=== PATIENT | male | born 1995 | race Hispanic/Latino ===

== ENCOUNTER 2019-11-07 02:26 | Observation (INO) | payer OTHER ==
[~2019-11-07] VITALS: Ht 170.2 cm; Wt 79.3 kg
[2019-11-07] MEDS ORDERED: DOXY-350 PO (02:32)
[2019-11-07] MEDS ORDERED: CHARCOAL ACTIVATED LIQUID 25 GM/120 ML BTL PO ONE (02:45)
[2019-11-07 02:53] LABS: BASO % 0.4 % (0.0-1.0); EOS # 0.2 10^3/uL (0.0-0.5); EOS % 1.9 % (0.0-3.0); HEMATOCRIT 45.8 % (42.0-52.0); HEMOGLOBIN 15.5 g/dl (13.5-17.5); LYMPH % 21.7 % (24.0-44.0); MEAN CORPUSCULAR HEMOGLOBIN 30.2 pg (27.0-33.0); MEAN CORPUSCULAR HGB CONC 33.8 g/dl (32.0-36.5); MEAN CORPUSCULAR VOLUME 89.3 fl (80.0-96.0); MONO # 0.7 10^3/uL (0.0-0.8); MONO % 7.3 % (0.0-5.0); NEUTROPHILS # 6.1 10^3/uL (1.5-8.5); NEUTROPHILS % 67.5 % (36.0-66.0); PLATELET COUNT, AUTOMATED 176 10^3/uL (150-450); RED BLOOD COUNT 5.13 10^6/uL (4.30-6.10); WHITE BLOOD COUNT 9.1 10^3/uL (4.0-10.0)
[2019-11-07 03:20] LABS: AMPHETAMINES LEVEL URINE NEGATIVE (NEGATIVE); BARBITURATES URINE NEGATIVE (NEGATIVE); BENZODIAZEPINES URINE NEGATIVE (NEGATIVE); CANNABINOIDS URINE NEGATIVE (NEGATIVE); COCAINE METABOLITE URINE NEGATIVE (NEGATIVE); METHADONE URINE NEGATIVE (NEGATIVE); OPIATES URINE NEGATIVE (NEGATIVE); PHENCYCLIDINE URINE NEGATIVE (NEGATIVE)
[2019-11-07 03:57] LABS: ACETAMINOPHEN LEVEL < 2.0 UG/ML (10.0-30.0); ALBUMIN 4.2 GM/DL (3.2-5.2); ALT/SGPT 64 U/L (12-78); BILIRUBIN,DIRECT 0.1 MG/DL (0.0-0.2); BILIRUBIN,TOTAL 0.3 MG/DL (0.2-1.0); BLOOD UREA NITROGEN 29 MG/DL (7-18); CALCIUM LEVEL 8.7 MG/DL (8.5-10.1); CARBON DIOXIDE LEVEL 23 MEQ/L (21-32); CHLORIDE LEVEL 106 MEQ/L (98-107); CPK CREATINE PHOSPHOKINASE 7952 U/L (39-308); CREATININE FOR GFR 1.14 MG/DL (0.70-1.30); ETHYL ALCOHOL (ETHANOL) < 0.003 % (0.000-0.010); GLOMERULAR FILTRATION RATE > 60.0 (>60); GLUCOSE, FASTING 98 MG/DL (70-100); POTASSIUM SERUM 4.1 MEQ/L (3.5-5.1); SALICYLATE LEVEL < 1.7 MG/DL (5.0-30.0); SODIUM LEVEL 138 MEQ/L (136-145); TOTAL PROTEIN 7.4 GM/DL (6.4-8.2)
[2019-11-07] MEDS ORDERED: NS 1,000 ML IV ONE ×2 (04:15→11:00)
[2019-11-07 10:51] LABS: ALBUMIN 3.7 GM/DL (3.2-5.2); ALT/SGPT 55 U/L (12-78); BILIRUBIN,DIRECT 0.1 MG/DL (0.0-0.2); BILIRUBIN,TOTAL 0.6 MG/DL (0.2-1.0); BLOOD UREA NITROGEN 20 MG/DL (7-18); CALCIUM LEVEL 8.6 MG/DL (8.5-10.1); CARBON DIOXIDE LEVEL 27 MEQ/L (21-32); CHLORIDE LEVEL 109 MEQ/L (98-107); CPK CREATINE PHOSPHOKINASE 5525 U/L (39-308); CREATININE FOR GFR 1.11 MG/DL (0.70-1.30); GLOMERULAR FILTRATION RATE > 60.0 (>60); GLUCOSE, FASTING 94 MG/DL (70-100); POTASSIUM SERUM 4.6 MEQ/L (3.5-5.1); SODIUM LEVEL 141 MEQ/L (136-145); TOTAL PROTEIN 6.6 GM/DL (6.4-8.2)
--- NOTE | 2019-11-07 13:01 | ECGEPIP ---
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
[2019-11-07] MEDS ORDERED: NS 1,000 ML IV SCH (13:15)
[2019-11-07] MEDS ORDERED: ACETAMINOPHEN TAB 650MG DOSE (2X325MG) PO PRN (14:00)
[2019-11-07] MEDS: NS 1,000 ML IV SCH ×3 (14:30→22:24)
--- NOTE | 2019-11-07 14:46 | HPEPDOC ---
General Date of Admission November 07, 2019 at 02:27 Date of Service: November 07, 2019 Attending Physician: FERNANDO GHOSH MD Chief Complaint The patient is a 24-year-old male admitted with a reason for visit of Rhabdomyolysis. Source: Patient Exam Limitations: No limitations Timing/Duration: 24 hours History of Present Illness 24 yo M with a history of depressive episodes, prior suicide attempt by gun that did not go off, active , who presented after ingesting 21 pills of 100mg doxycycline tabs with the goal of committing suicide. He immediately regretted it and presented to the ED. Of note he reports recent intensive PT training with chemical suits with prolonged periods of no hydration and frequent bursts of intense physical training. He denies any recent specific psychosocial pressures, has a girlfriend and his family is in [place]. In the ED, he was hemodynamically stable, afebrile and saturating well on room air without acute complaints. Workup was notable for CK 7952--5525-->5570, WBC 9.1, hgb 15.5, Cr 1.1, AST 113/ALT 55, with normal electrolytes, NSR on EKG and negative tox screen> While in the ED he was given charcoal on arriva, 2L NS and started on 250cc/hr NS and poison control was contacted without any specific recommendations beyond expectant supportive management. He is now being admitted to medicine for management of rhabdomyolysis a with psychiatry consult. Home Medications Scheduled Doxycycline Monohydrate (Doxycycline) 100 Mg Capsule, 100 MG PO Q12H, (Reported) FILLED 11/04/19 FOR 14 DAYS Allergies Coded Allergies: No Known Allergies (Unverified , 11/07/19) Past Medical History Medical History Depression Suicide attempt Surgical History None Family History Significant Family History: No pertinent family hx Social History * Smoker: Denies Alcohol: Denies Drugs: denies Recent Travel/Sick Contacts: Denies: Recent travel, Recent sick contacts Psychosocial History: Depression, Prior suicide attempt, Suicidal thoughts Active . Reports good psychosocial support with girlfriend and his family that is located in [place]. No smoking, alcohol or illicit drug use. A-FIB/CHADSVASC A-FIB History Current/History of A-Fib/PAF?: No Current PO Anticoag Therapy: No Age/Risk Factor Scoring CHADSVASC: CHADSVASC Response (Comments) Value Age Risk Factor Age < 65 years old 0 Gender Risk Factor Male 0 Hx of CHF No 0 Hx of HTN No 0 Hx of Stroke/TIA/or VTE No 0 Hx of Diabetes No 0 Hx of Vascular Disease No 0 Total 0 Treatment Treatment ordered: NONE Reason Anticoagulant not given: Not indicated/[id number] Review of Systems Constitutional: Denies: Chills, Fever, Night Sweats Eyes: Denies: Pain, Vision change ENT: Denies: Head Aches, Ear Pain, Dysphagia Skin: Denies: Rash, Lesions, Breakdown Pulmonary: Denies: Dyspnea, Cough Cardiovascular: Denies: Chest Pain, Palpitations, Orthopnea, Paroxysmal Noc. Dyspnea, Lt Headedness Gastrointestinal: Denies: Nausea, Vomiting, Abdominal Pain, Diarrhea Genitourinary: Denies: Dysuria, Frequency, Incontinence, Retention Hematologic: Denies: Bruising, Bleeding Excessively Endocrine: Denies: Polydipsia, Polyphagia, Polyuria, Heat Intolerance, Cold Intolerance, Other Endocrine Sx Musculoskeletal: Denies: Neck Pain, Back Pain, Joint Pain, Muscle Pain, Spasms Neurological: Denies: Weakness, Numbness, Change in speech, Confusion Psych: Reports: Depression, Thoughts of Harming Other Physical Examination General Exam: Positive: Alert, No Acute Distress Eye Exam: Positive: PERRLA, Conjunctiva & lids normal, EOMI; Negative: Sclera icteric ENT Exam: Positive: Atraumatic, Mucous membr. moist/pink, Pharynx Normal Neck Exam: Positive: Supple; Negative: JVD, thyromegaly Chest Exam: Positive: Clear to auscultation, Normal air movement Heart Exam: Positive: Rate Normal, Regular Rhythm, Normal S1, Normal S2; Negative: Murmurs, Rubs Telemetry: Positive: No significant arrhythmia Abdomen Exam: Positive: Normal bowel sounds, Soft; Negative: Tenderness, Hepatospenomegaly Extremity Exam: Positive: Normal pulses; Negative: Clubbing, Cyanosis, Edema Skin Exam: Positive: Nl turgor and temperature; Negative: Breakdown, Lesion Neuro Exam: Positive: Normal Gait, Normal Speech, Cranial Nerves 3-12 NL, Reflexes 2+ Psych Exam: Positive: Mental status NL, Oriented x 3, Other (remorseful, teary, depressed) Vital Signs Vital Signs Date Time Temp Pulse Resp B/P (MAP) Pulse Ox O2 Delivery O2 Flow Rate FiO2 11/07/19 07:45 67 16 117/65 (82) 98 Room Air 11/07/19 06:00 96.7 Laboratory Data Labs 24H Laboratory Tests 2 11/07/19 02:40: Immature Granulocyte % (Auto) 1.2, Neutrophils (%) (Auto) 67.5H, Lymphocytes (%) (Auto) 21.7L, Monocytes (%) (Auto) 7.3H, Eosinophils (%) (Auto) 1.9, Basophils (%) (Auto) 0.4, Neutrophils # (Auto) 6.1, Lymphocytes # (Auto) 2.0, Monocytes # (Auto) 0.7, Eosinophils # (Auto) 0.2, Basophils # (Auto) 0.0, Nucleated Red Blood Cells % (auto) 0.0, Anion Gap 9, Glomerular Filtration Rate > 60.0, Calcium Level 8.7, Total Bilirubin 0.3, Direct Bilirubin 0.1, Aspartate Amino Transf (AST/SGOT) 162H, Alanine Aminotransferase (ALT/SGPT) 64, Alkaline Phosphatase 73, Total Creatine Kinase 7952H, Total Protein 7.4, Albumin 4.2, Albumin/Globulin Ratio 1.31, Thyroid Stimulating Hormone (TSH) 2.440, Salicylates Level < 1.7L, Acetaminophen Level < 2.0L, Ethyl Alcohol Level < 0 .003 11/07/19 02:47: Urine Opiates Screen NEGATIVE, Urine Methadone Screen NEGATIVE, Urine Barbiturates Screen NEGATIVE, Urine Phencyclidine Screen NEGATIVE, Urine Amphetamines Screen NEGATIVE, Urine Benzodiazepines Screen NEGATIVE, Urine Cocaine Metabolite Screen NEGATIVE, Urine Cannabinoids Screen NEGATIVE 11/07/19 02:58: Bedside Glucose (Misc Panel) 102 11/07/19 10:01: Anion Gap 5L, Glomerular Filtration Rate > 60.0, Calcium Level 8.6, Total Bilirubin 0.6#, Direct Bilirubin 0.1, Aspartate Amino Transf (AST/SGOT) 113H, Alanine Aminotransferase (ALT/SGPT) 55, Alkaline Phosphatase 67, Total Creatine Kinase 5525H, Total Protein 6.6, Albumin 3.7, Albumin/Globulin Ratio 1.28 11/07/19 11:44: Total Creatine Kinase 5570H CBC/BMP Laboratory Tests 11/07/19 02:40 11/07/19 10:01 Assessment/Plan 24 yo M with depression and prior suicide attempt who is being admitted for management of rhabdomyolysis 2/2 intensive strenuous exercise and suicide gesture/attempt with doxycycline. Rhabdomyolysis: -s/p 2L NS in the ED -continue NS at 250cc/hr -check AM CK -discussed the importance of hydration during intense physical training Suicide gesture with ongoing depression: -has never been on pharmacotherapy for depression -psych consult -1:1 sitter DVT ppx: lovenox Diet: regular Dispo: medsurg, obs Plan / VTE VTE Prophylaxis Ordered?: Yes FERNANDO GHOSH MD November 07, 2019 14:46
[2019-11-07 16:38] VITALS: BP 128/79
[2019-11-07 21:04] VITALS: BP 127/85
[2019-11-08] MEDS: NS 1,000 ML IV SCH ×2 (02:01→05:53)
[2019-11-08 05:50] LABS: HEMATOCRIT 40.8 % (42.0-52.0); HEMOGLOBIN 14.1 g/dl (13.5-17.5); MEAN CORPUSCULAR HEMOGLOBIN 31.3 pg (27.0-33.0); MEAN CORPUSCULAR HGB CONC 34.6 g/dl (32.0-36.5); MEAN CORPUSCULAR VOLUME 90.7 fl (80.0-96.0); PLATELET COUNT, AUTOMATED 164 10^3/uL (150-450); WHITE BLOOD COUNT 5.9 10^3/uL (4.0-10.0)
[2019-11-08 06:00] VITALS: BP 117/67
[2019-11-08 06:29] LABS: ALBUMIN 3.2 GM/DL (3.2-5.2); ALT/SGPT 48 U/L (12-78); BILIRUBIN,TOTAL 0.9 MG/DL (0.2-1.0); BLOOD UREA NITROGEN 12 MG/DL (7-18); CALCIUM LEVEL 8.3 MG/DL (8.5-10.1); CARBON DIOXIDE LEVEL 27 MEQ/L (21-32); CHLORIDE LEVEL 111 MEQ/L (98-107); CPK CREATINE PHOSPHOKINASE 2564 U/L (39-308); CREATININE FOR GFR 0.98 MG/DL (0.70-1.30); GLOMERULAR FILTRATION RATE > 60.0 (>60); GLUCOSE, FASTING 94 MG/DL (70-100); MAGNESIUM LEVEL 1.9 MG/DL (1.8-2.4); POTASSIUM SERUM 4.2 MEQ/L (3.5-5.1); SODIUM LEVEL 140 MEQ/L (136-145)
[2019-11-08] MEDS ORDERED: ENOXAPARIN 40MG/0.4ML SYRINGE (J1650 PER 10MG) SC SCH (09:00)
[2019-11-08 14:00] VITALS: BP_SYST 117; BP_SYST 122; BP_DIAS 67; BP_DIAS 76
--- NOTE | 2019-11-08 15:49 | DS.PDOC ---
Discharge Summary General Date of Admission November 07, 2019 at 02:27 Date of Discharge 11/08/2019 Attending Physician: FERNANDO GHOSH MD Discharge Summary PROCEDURES PERFORMED DURING STAY: None ADMITTING DIAGNOSES: 1. Rhabdomyolysis. DISCHARGE DIAGNOSES: 1. Rhabdomyolysis. 2. Suicidal gesture COMPLICATIONS/CHIEF COMPLAINT: Rhabdomyolysis. HISTORY OF PRESENT ILLNESS: 24 yo M with a history of depressive episodes, prior suicide attempt by gun that did not go off, active , who presented after ingesting 21 pills of 100mg doxycycline tabs with the goal of committing suicide. He immediately regretted it and presented to the ED. Of note he reports recent intensive PT training with chemical suits with prolonged periods of no hydration and frequent bursts of intense physical training. He denies any recent specific psychosocial pressures, has a girlfriend and his family is in [place]. HOSPITAL COURSE: In the ED, he was hemodynamically stable, afebrile and saturating well on room air without acute complaints. Workup was notable for CK 7952--5525-->5570, WBC 9 .1, hgb 15.5, Cr 1.1, AST 113/ALT 55, with normal electrolytes, NSR on EKG and negative tox screen> While in the ED he was given charcoal on arrival, 2L NS and started on 250cc/hr NS and poison control was contacted without any specific recommendations beyond expectant supportive management. He was admitted to medicine for management of rhabdomyolysis and continued on IV fluids with eventual downtrend of his CK. He is now being discharged to [facility] after evaluation by psychiatry. DISCHARGE MEDICATIONS: Please see below. ALLERGIES: Please see below. PHYSICAL EXAMINATION ON DISCHARGE: VITAL SIGNS: Please see below. GENERAL: NAD HEENT: NCAT, PERRLA, EOMI, MMM NECK: supple, no JVD CARDIOVASCULAR EXAMINATION: RRR, no mrg RESPIRATORY EXAMINATION: CTAB ABDOMINAL EXAMINATION: Normoactive sounds, soft, NTND EXTREMITIES: WWP, no edema SKIN: No rashes, sequela of bleeding or lesions NEUROLOGICAL EXAMINATION: CN2-12 intact, normal gait, 5/5 strength and normal tone PSYCHIATRIC EXAMINATION: Aox3, remorseful about suicidal gesture, depressed LABORATORY DATA: Please see below. IMAGING: None this admission PROGNOSIS: Good ACTIVITY: As tolerated DIET: Regular DISCHARGE PLAN: [facility] DISPOSITION: [facility] DISCHARGE INSTRUCTIONS: 1. Follow up with mental health provider ITEMS TO FOLLOWUP ON ON OUTPATIENT: 1. Depression with suicidal ideation DISCHARGE CONDITION: Stable TIME SPENT ON DISCHARGE: 31 minutes. Vital Signs/I&Os Vital Signs Date Time Temp Pulse Resp B/P (MAP) Pulse Ox O2 Delivery O2 Flow Rate FiO2 11/08/19 06:00 97.7 54 18 117/67 (84) 97 Room Air I&O- Last 24 Hours up to 6 AM 11/08/19 06:00 Intake Total 1920 ml Output Total 0 ml Balance 1920 ml Laboratory Data Labs 24H Laboratory Tests 2 11/07/19 10:01: Anion Gap 5L, Glomerular Filtration Rate > 60.0, Calcium Level 8.6, Total Bilirubin 0.6#, Direct Bilirubin 0.1, Aspartate Amino Transf (AST/SGOT) 113H, Alanine Aminotransferase (ALT/SGPT) 55, Alkaline Phosphatase 67, Total Creatine Kinase 5525H, Total Protein 6.6, Albumin 3.7, Albumin/Globulin Ratio 1.28 11/07/19 11:44: Total Creatine Kinase 5570H 11/08/19 05:34: Anion Gap 2L, Glomerular Filtration Rate > 60.0, Calcium Level 8.3L, Total Bilirubin 0.9, Aspartate Amino Transf (AST/SGOT) 66H, Alanine Aminotransferase (ALT/SGPT) 48, Alkaline Phosphatase 59, Total Creatine Kinase 2564H, Total Protein 6.0L, Albumin 3.2, Albumin/Globulin Ratio 1.14, Nucleated Red Blood Cells % (auto) 0.0, Magnesium Level 1.9 CBC/BMP Laboratory Tests 11/07/19 10:01 11/08/19 05:34 Discharge Medications Scheduled Doxycycline Monohydrate (Doxycycline) 100 Mg Capsule, 100 MG PO Q12H, (Reported) FILLED 11/04/19 FOR 14 DAYS Allergies Coded Allergies: No Known Allergies (Unverified , 11/07/19) FERNANDO GHOSH MD November 08, 2019 07:36
--- NOTE | 2019-11-10 07:21 | CR ---
TELEMEDICINE VIDEO ASSESSMENT DATE OF CONSULTATION: 11/08/2019 CONSULTATION FOR THE HOSPITALIST he chart is reviewed. The patient is interviewed. He is interviewed in the presence of a staff member. CHIEF COMPLAINT: He took an overdose. SUBJECTIVE: He is [id number]. He is single. He has a girlfriend, who apparently is also in the , she is in [facility] at the moment, and returns in a month or so. He has no children. The patient is based at [facility], says has been here possibly about a year or so, was deployed to [facility], returned a couple of months or so ago, says no related traumas. 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 He says he was doing well, but a few weeks ago began experiencing self doubts, suggests it tends to happen periodically, and he indicated they are related to when he was 15, but did not go into details, says when such thoughts creep in he feels somewhat depressed, and feels anxious as well. Says this tended to worsen, he decided to go to [facility], says has begun seeing a clinician there, and is due to have his third visit or so on Sunday (today is Sunday). Over the last couple of weeks, matters have become more difficult, says he had a hard time getting out of bed, and was eating because he was supposed to, but he did not think that this impacted his work to any greater extent, has been doing well there, including training. Says has a few friends in the unit, some he possibly also can confide in. Matters worsened, felt more depressed, more anxious. Says had a harder time getting out of bed, but managed to do so, also had fleeting suicidal thoughts, he says had no firm plans, and that talking to friends, as well as his girlfriend and his sister, who is in [place], who tend to help. He was recently also treated for left sided orchitis with epididymitis, was given doxycycline. He felt further depressed a couple of days ago and anxious, and took an overdose. He took more than 20 doxycycline. Says he regretted it immediately afterwards, and tried throwing up, and was brought to the hospital. He was assessed and admitted to the medical service because of rhabdomyolysis. I was asked to see him as he had been cleared by the hospitalist, Dr. Parson. He says he feels better, and that he should have "reached out" to others, says plans to do so, including a friend at the [employer]. 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 Says he has continued doing well at work overall. Indicates had had a similar episode a couple of years ago when he was in [place], had felt stressed, with self doubts, which he implies are associated with relationships, and a similar spiral into what he terms a "rabbit hole", with increasing anxiety, depression, poor sleep, poor appetite as well, low energy. During that time, he says he felt hopeless, suicidal, and tried killing himself by shooting himself, but says the gun did not go off, he called it a "bad round". He was seen by a therapist, he was in the at that time, says he felt well after a couple of months. Says no medications were offered at the time and in fact the therapist preferred that he did not take any. Says has generally done well for the most part since then, until recently. No history consistent with hypomania nor tee. No obsessions. No compulsions. No head injuries. Denies any nightmares or flashbacks related to events in the past, did not indicate any particular events that bothered him, but suggested had thoughts related to when he was a teenager, around 15 or so. Did not allude to any abuse at the time. PAST PSYCHIATRIC HISTORY: As indicated above. At first inpatient hospitalization, he attempted to kill himself two years ago, and then the other day. Has seen a therapist a couple of years ago, and had just started seeing one at [facility] now. Next visit is in a couple of days. FAMILY PSYCHIATRIC HISTORY: Denies any as far as he is aware. SUBSTANCE ABUSE HISTORY: None significantly. MEDICAL HISTORY: Recently treated for orchitis and epididymitis. SOCIAL HISTORY: He says he has lived in various bases, his father was in the , they lived at various stations, and at one time they were in [place], says was there for a bit, and then upon return mostly stayed in [place], where he says most of his family still lives. He spoke of a toxic atmosphere at home, but did not go into details. Says his parents ended up after 22 years of marriage. He has one sibling, a younger sister. Says he is close to her, as well as his parents. He has been in the for almost three years. No injuries, no traumas there. Denies any head injury. He has a girlfriend, they have been together for six months, says it is a good relationship. He also suggests that it was generally easy for him to make friends in his teenage years, but that it was difficult to maintain them, and that somehow he would tend to push them away, suggests that that tendency has to some extent continued. Says has been doing well at work, has friends, but feels he ought to be a bit more open with others. MENTAL STATUS EXAMINATION: He is neat, generally cooperative, but a bit guarded at times. There is no agitation. No psychomotor retardation. He is sitting up in bed. No abnormal movements noted. He is coherent. Affect is restricted in range, shows some reactivity. Denies any thoughts of harming himself at present. Denies any suicidal thoughts or intents, or any plans. Denies any homicidal ideas or intents. No evidence of any psychosis. There is no fluctuation of consciousness. Cognition is grossly intact. He does not appear to be internally preoccupied. Intellect average. Judgment is compromised. Insight is fair at best. VITAL SIGNS: Blood pressure 117/67. Pulse 64. Temperature 97.7. INVESTIGATIONS: Urine toxicology is negative. A metabolic profile within normal limits except for chloride of 111, total bilirubin 0.3, total creatinine kinase 2564 today, and on initial evaluation yesterday was [id number] ([id number]). Complete blood count essentially within normal limits. ASSESSMENT: Other specified depressive disorder. Status post overdose. Rule out major depressive disorder, recurrent. Interpersonal difficulties, in terms of making and maintaining friends. Has been clinically significantly depressed, the last few weeks, anxious as well, and these are triggered by thoughts related to when he was a teenager, and subsequent years, unclear if any traumatic events, but alludes to difficulties with friendships and maintaining them. Tends to be possibly overly critical of himself. Had a childhood characterized by his parents difficult marriage. Was clinically significantly depressed and almost killed himself two years ago, but for a malfunctioning gun. He has now taken a substantial overdose, which has resulted in rhabdomyolysis, which is improving. It is quite possible he may be minimizing his difficulties, and the intensity of his struggles. RECOMMENDATIONS: Given the above, the patient needs inpatient psychiatric hospitalization for further assessment, evaluation and management. The intensity of his moods and the overdose as well as past history of significance, all point to the impact on his functioning. He does not wish to go to the psychiatry unit, wishes to be discharged. I am quite concerned about that, and at present he meets criteria for involuntary hospitalization. He has been medically cleared for admission. He says he is also eager to leave as he can hope to then communicate with his girlfriend, it is her birthday tomorrow. We will look to see if we can arrange for him to contact her tomorrow. He is aware of this. I have also suggested he may wish to consider using an antidepressant, given previous episodes and we will discuss it further. Thank you for the consult. If any questions, please call. The assessment took 45 minutes.
== END 2019-11-08 22:59 ==
LOC: M ED 02:26 → M ED INP 02:27 → ENRESERV 15:03 → M MS5PR 16:38
PROVIDERS: ADMIT Internal Medicine; ATTEND Internal Medicine
DX: M62.82 Rhabdomyolysis (principal); T14.91XA Suicide attempt, initial encounter; T36.4X2A Poisoning by tetracyclines, intentional self-harm, initial encounter; Y92.89 Other specified places as the place of occurrence of the external cause; F32.9 Major depressive disorder, single episode, unspecified; Z91.5 Personal history of self-harm
CPT/HCPCS: 36415; 80048; 80053; 80076; 80307; 82550; 83735; 84443; 85025; 85027; 93005; 93041; 94760; 96360; 96361; 99285; G0480

== ENCOUNTER 2019-11-08 18:24 | Inpatient (IN) | payer OTHER ==
[~2019-11-08] VITALS: Ht 170.2 cm; Wt 77.2 kg
[~2019-11-08 18:24] MED LIST: DOXY-350 PO
[2019-11-08] MEDS ORDERED: ACETAMINOPHEN TAB 650MG DOSE (2X325MG) PO PRN (18:30)
[2019-11-08] MEDS ORDERED: MAALOX 30 ML SUSP *UDC PO PRN (18:30)
[2019-11-08] MEDS ORDERED: traZODone 50 MG TAB PO PRN (18:30)
[2019-11-08] MEDS ORDERED: LORazepam 1 MG TAB PO PRN (18:30)
[2019-11-08] MEDS ORDERED: MOM 30ML SUSPENSION UDC PO PRN (18:30)
[2019-11-08 20:32] VITALS: BP 150/84
[2019-11-09 05:56] VITALS: BP 114/56
[2019-11-09] MEDS: FLUoxetine 10 MG CAP PO SCH (12:58)
--- NOTE | 2019-11-09 13:20 | HPEPDOC ---
General Date of Admission November 08, 2019 at 19:30 Date of Service: November 09, 2019 Attending Physician: FERNANDO GHOSH MD Chief Complaint The patient is a 24-year-old male admitted with a reason for visit of Other Unspecified Depressive Disorder. Source: Patient Exam Limitations: No limitations History of Present Illness 24 yo M with a history of depressive episodes, prior suicide attempt by gun that malfunctioned, active , who presented after ingesting 21 pills of 100mg doxycycline tabs with the goal of committing suicide, while in intensive PT training with chemical suits with prolonged periods of no hydration and frequent bursts of intense physical training. i recently admitted him to medicine for rhabdomyolysis after he was found to have an elevated CK to 7952 and hydrated him with IVF with improved of his rhabdo. Thankfully is renal function was at baseline and he had a robust response. After discussing the suicidal gesture/attempt, I consulted psychiatry and his was evaluated by Dr. Judge who recommended discharge to the [facility] for evaluation and treatment of his depression with suicidal ideation and recent gesture/attempt. Today, he reports that he is doing well without physical complaints except being anxious to be discharged and following up as an outpatient. Allergies Coded Allergies: No Known Allergies (Unverified , 11/07/19) Past Medical History Medical History Depression with prior suicide attempts Surgical History none Family History Significant Family History: No pertinent family hx Social History * Smoker: Denies Alcohol: Denies Drugs: denies Recent Travel/Sick Contacts: Denies: Recent travel, Recent sick contacts Psychosocial History: Decreased mood, Depression, Suicidal thoughts Active . No nicotine dependence, alcohol or illicit drug use A-FIB/CHADSVASC A-FIB History Current/History of A-Fib/PAF?: No Current PO Anticoag Therapy: No Age/Risk Factor Scoring CHADSVASC: CHADSVASC Response (Comments) Value Age Risk Factor Age < 65 years old 0 Gender Risk Factor Male 0 Hx of CHF No 0 Hx of HTN No 0 Hx of Stroke/TIA/or VTE No 0 Hx of Diabetes No 0 Hx of Vascular Disease No 0 Total 0 Treatment Treatment ordered: NONE Reason Anticoagulant not given: Not indicated/[id number] Review of Systems Constitutional: Denies: Chills, Fever, Night Sweats Eyes: Denies: Pain, Vision change ENT: Denies: Head Aches, Ear Pain, Dysphagia Skin: Denies: Rash, Lesions, Breakdown Pulmonary: Denies: Dyspnea, Cough Cardiovascular: Denies: Chest Pain, Palpitations, Orthopnea, Paroxysmal Noc. Dyspnea, Lt Headedness Gastrointestinal: Denies: Nausea, Vomiting, Abdominal Pain, Diarrhea Genitourinary: Denies: Dysuria, Frequency, Incontinence, Retention Hematologic: Denies: Bruising, Bleeding Excessively Endocrine: Denies: Polydipsia, Polyphagia, Polyuria, Heat Intolerance, Cold Intolerance, Other Endocrine Sx Musculoskeletal: Denies: Neck Pain, Back Pain, Joint Pain, Muscle Pain, Spasms Neurological: Denies: Weakness, Numbness, Change in speech, Confusion Psych: Reports: Anxiety (to be discharged), Depression; Denies: Thoughts of Self Harm Physical Examination General Exam: Positive: Alert, No Acute Distress Eye Exam: Positive: PERRLA, Conjunctiva & lids normal, EOMI; Negative: Sclera icteric ENT Exam: Positive: Atraumatic, Mucous membr. moist/pink, Pharynx Normal Neck Exam: Positive: Supple; Negative: JVD, thyromegaly Chest Exam: Positive: Clear to auscultation, Normal air movement Heart Exam: Positive: Rate Normal, Regular Rhythm, Normal S1, Normal S2; Negative: Murmurs, Rubs Abdomen Exam: Positive: Normal bowel sounds, Soft; Negative: Tenderness, Hepatospenomegaly Extremity Exam: Positive: Normal pulses; Negative: Clubbing, Cyanosis, Edema Skin Exam: Positive: Nl turgor and temperature; Negative: Breakdown, Lesion Neuro Exam: Positive: Normal Gait, Normal Speech, Cranial Nerves 3-12 NL, Reflexes 2+ Psych Exam: Positive: Mental status NL, Oriented x 3 Vital Signs Vital Signs Date Time Temp Pulse Resp B/P (MAP) Pulse Ox O2 Delivery O2 Flow Rate FiO2 11/09/19 05:56 97.3 73 14 114/56 (75) 99 Room Air Assessment/Plan 24 yo M with a history of depressive episodes, prior suicide attempt by gun that malfunctioned, active , who presented after ingesting 21 pills of 100mg doxycycline tabs with the goal of committing suicide, while in intensive PT training with chemical suits with prolonged periods of no hydration and frequent bursts of intense physical training, who was recently discharged from medicine after aggressive hydration for rhabdomyolysis now admitted to the [facility] for depression and suicidal gesture/attempt. Recent rhabdomyolysis: -s/p aggressive hydration while in inpatient medicine -At this time counselled patient on adequate hydration especially during intensive training Depression with suicidal gesture/attempt -Will defer to the primary psychiatry team At this time, medicine will sign off. Plan / VTE VTE Prophylaxis Ordered?: No VTE Exclusion Mechanical Proph: Low Risk for VTE VTE Exclusion Pharmacological: At Low Risk for VTE FERNANDO GHOSH MD November 09, 2019 09:11
[2019-11-09 16:14] VITALS: BP 134/81
[2019-11-10 06:20] VITALS: BP 132/75
[2019-11-10] MEDS: FLUoxetine 10 MG CAP PO SCH (09:05)
--- NOTE | 2019-11-10 09:09 | MHIPNPDOC ---
[facility] Progress Note Progress Note Inpatient Progress Note Gary Pierre MRN: N/A Date of : N/A Date of Service: 11/10/2019 History of Present Illness 24-year-old man presented after overdosing on doxycycline. Has a history of depression and multiple stressors. Interval History The patient is met with today. He reports he is doing well on the Prozac with no side effects. He reports he is doing much improved from his depression with more insight, less fatigue and better motivation. He has been amenable to treatment and will engaged per staff reports. Review Of Systems General: Denies fever or appetite changes Cardiovascular: Denies Chest pain or palpations GI: Denies Nausea, vomiting, or bowel changes Respiratory: Denies shortness of breath or cough Neuro: Denies dizziness, tremors Derm: Denies any rashes or pruritus : Denies any dysuria or urinary problems MSK: Denies any muscle tightness or stiffness HEENT: Denies any vision changes or headaches Psychotherapy None on this visit. Vital Signs Reviewed. Mental Status Examination General: Well dressed with good hygiene Speech: Spontaneous and fluid Thought processes: Linear and logical MSK: Smooth and coordinated gait, no signs of tremors or involuntary orofacial movements Thought content: Future orientated Abstract reasoning, and computation: Intact Description of associations: Intact Description of abnormal or psychotic thoughts: Denies any suicidal or homicidal ideation. Denies any auditory or visual hallucinations. Does not appear to be responding to internal stimuli. Does not appear to be endorsing any bizarre or paranoid ideation. Judgment: fair Insight: fair Orientation: Alert and orientated 3 Cognition: Grossly normal Recent and remote memory: Intact Attention span and concentration: Intact Fund of knowledge: Adequate Mood: "okay" Affect: Euthymic with a full range Diagnoses MDD, moderate to severe, recurrent. Assessment and Plan MDD: Continue Prozac. Disposition Discharge tomorrow if continues to improve. Time Spent 15 minutes. Sunday Vital Signs Vital Signs Date Time Temp Pulse Resp B/P (MAP) Pulse Ox O2 Delivery O2 Flow Rate FiO2 11/10/19 06:20 97.6 61 14 132/75 (94) 99 Room Air Current Medications Current Medications Medications (Trade) Dose Ordered Sig/Duane Route PRN Reason Start Time Stop Time Status Last Admin Dose Admin Acetaminophen (Tylenol Tab) 650 mg Q6HP PRN PO HEADACHE or DISCOMFORT 11/08/19 18:30 11/09/19 08:05 Al Hydrox/Mg Hydrox/Simethicone (Mylanta) 30 ml Q4HP PRN PO HEARTBURN/INDIGESTION 11/08/19 18:30 Fluoxetine HCl (PROzac) 10 mg DAILY PO 11/09/19 09:00 11/10/19 09:05 Lorazepam (Ativan) 1 mg BIDP PRN PO ANXIETY/AGITATION 11/08/19 18:30 Magnesium Hydroxide (Milk Of Magnesia) 30 ml DAILYPRN PRN PO CONSTIPATION 11/08/19 18:30 Trazodone HCl (Desyrel) 50 mg QHSP PRN PO INSOMNIA 11/08/19 18:30 Allergies Coded Allergies: No Known Allergies (Unverified , 11/07/19) PARVEZ DAWN DO November 10, 2019 09:09
--- NOTE | 2019-11-10 12:48 | MHHPE ---
DATE OF ADMISSION: 11/08/2019 Telemedicine Video Assessment. VITAL SIGNS: Blood pressure 114/56. Pulse 73. Temperature 97.3. CHIEF COMPLAINT: Feels depressed. SUBJECTIVE: He is [id number]. He is seen in the presence of staff. He is admitted to the hospital, to the inpatient psychiatry unit, from the medical floor, where I had seen him yesterday on consultation, after he had taken a considerable overdose. He overdosed on doxycycline, which he had just been prescribed for orchitis and epididymitis. He had taken the overdose in an attempt to kill himself. This is the second time he has tried killing himself, the first was a couple of years ago in [place], he tried shooting himself, but the gun did not go off. Please refer to my consultation note for details related to the circumstances of his coming to the hospital, background history, as well as mental status exam at the time, and the reason for his hospitalization to inpatient mental health. He says he thought he was going to go back to the emergency room, and that matters were going to be quite enclosed there, but that he feels a bit better being in the inpatient psychiatry unit. He says sleep was reasonably good. He says he has been in touch with his girlfriend, and it happened today. She is [place], and that went well. He says he also spoke with his sister, who is close to, in [place]. He indicated he will probably tell his mother about his being here eventually, but not his father, concerned father may see this as a sign of weakness. Says he is not too bothered, however, what his father may think. He also alluded to his parents having a difficult relationship, and that he had witnessed the difficulties, and felt that was "normal". Says he does not think he had nightmares related to that, but began having difficulties with his own relationships with others. Says they moved quite a bit because of his father being in the , he feels that is where his self doubts about forming relationships set in. PAST PSYCHIATRIC HISTORY AND BACKGROUND HISTORY: Please refer to previous summaries. Past psychiatric history is significant for his being depressed a couple of years ago in [place], it lasted for a few months, and on one occasion he tried killing himself, a gun that did not go off. He says he took that as a "wake up call". MENTAL STATUS EXAMINATION: He is neat. He is wearing a mask because of the virus precautions. He is cooperative and possibly a little less guarded than yesterday. No agitation. No psychomotor retardation. He is coherent. Affect is somewhat restricted in range, as far as I can tell. Denies any thoughts of harming himself at present. No homicidal ideas or intents. No evidence of any psychosis. Intellect average. Cognition grossly intact. Judgment and insight remain compromised overall. ASSESSMENT: Other specified depressive disorder. Consider major depressive disorder, recurrent. Status post overdose. Interpersonal difficulties, in terms of relationships, maintaining them. Difficult childhood, particularly parents' marriage. PLAN: He is admitted to the inpatient psych unit and placed on relevant precautions. We will look at obtaining collateral information. He will receive a medicine consult if indicated. He had just been cleared by medicine yesterday. He had rhabdomyolysis, and it is thought that his recent bout of training may also have contributed to that. He will be encouraged to participate in activities in the unit. He would potentially benefit from using an antidepressant, and we discussed this, given his previous bout of what seems to have been quite significant depression, on top of the prior episode, and now the more recent one, which is current. After discussion of the various risks and benefits, drawbacks, alternatives, which he understands, he is started on Prozac at 10 mg daily. This will need to be titrated up, provided he tolerates it. He is aware that he may not need to await the titration in the hospital, depending on how he does. He will be discharged with followup once he is stable. He will be seeing the assigned psychiatrist tomorrow, when further recommendations will be made, depending on the clinical picture. I would anticipate a 3-5 day stay. Followup will be at [place]. The assessment took 30 minutes.
[2019-11-10 15:24] VITALS: BP 157/73
[2019-11-11 06:10] VITALS: BP 134/79
[2019-11-11] MEDS: FLUoxetine 10 MG CAP PO SCH (08:04)
--- NOTE | 2019-11-11 09:43 | MHDSPDOC ---
[facility] Discharge Summary Discharge Summary DATE OF ADMISSION: November 08, 2019 at 19:30 DATE OF DISCHARGE: 11/11/19 Discharge Gary Pierre MRN: N/A Date of : N/A Date of Service: 11/11/2019 Diagnoses MDD, moderate to severe, recurrent. History of Present Illness 24-year-old man presented after overdosing on doxycycline. Has a history of depression and multiple stressors. Consultants Involved Hospitalist/PCP screening Treatment and Progress On The Unit The patient was admitted to the inpatient mental health unit. He was then tried on Prozac 10 mg with positive results, improvement in mood, loss of interest and energy levels. He did well on the unit with no further suicidal ideation and subsequently requested discharge. He had no behavioral problems around the unit, engaged well. Discharge Assessment 24-year-old man with likely major depression presents after overdose, treated appropriately with antidepressant. He improves well and is discharged from the unit as requested. The patient at the time of discharge did not meet criteria for involuntary admission/extension due to having a normal mental status exam, fair insight into the situation, They are engaged in the discharge process, as well as being friendly and amenable in behavioral control and havent been engaging in any observed concerning behavior or ideation recently. They decline voluntary ext ension/admission at this time and must be discharged in good renuka, as Im unable to make a case for holding the patient against their will. They may have historical risk factors of admissions and other interactions with psychiatry however, those are not modifiable from a clinical perspective. The patient will need to be discharged in good renuka. Mental Status Examination General: Well dressed with good hygiene Speech: Spontaneous and fluid Thought processes: Linear and logical MSK: Smooth and coordinated gait, no signs of tremors or involuntary orofacial movements Thought content: Future orientated Abstract reasoning, and computation: Intact Description of associations: Intact Description of abnormal or psychotic thoughts: Denies any suicidal or homicidal ideation. Denies any auditory or visual hallucinations. Does not appear to be responding to internal stimuli. Does not appear to be endorsing any bizarre or paranoid ideation. Judgment: fair Insight: fair Orientation: Alert and orientated 3 Cognition: Grossly normal Recent and remote memory: Intact Attention span and concentration: Intact Fund of knowledge: Adequate Mood: "okay" Affect: Euthymic with a full range Follow Up The social work team worked during the predischarge meeting in order to evaluate for further issues of lethality address them fully before discharge. They worked on safety planning with the patient's family members in order to ensure that the patient will have a safe and effective discharge. Time Spent The amount of time spent in the coordination of care for this patient was approximately 45 minutes. Sunday Vital Signs/I&Os Vital Signs Date Time Temp Pulse Resp B/P (MAP) Pulse Ox O2 Delivery O2 Flow Rate FiO2 11/11/19 06:10 98.3 54 14 134/79 (97) 96 Room Air Medications Scheduled Fluoxetine Hcl (Fluoxetine HCl) 10 Mg Capsule, 10 MG PO DAILY for mood for 7 Days, #7 Allergies Coded Allergies: No Known Allergies (Unverified , 11/07/19) PARVEZ DAWN DO November 11, 2019 09:43
[2019-11-11] MEDS ORDERED: FLUO10CA15 PO (09:58)
== END 2019-11-11 13:00 | disposition home or self-care (01) | DRG 885 ==
LOC: M PSY 19:30
PROVIDERS: ADMIT Psychiatry & Neurology Psychiatry; ATTEND Psychiatry & Neurology Addiction Medicine
DX: F33.2 Major depressive disorder, recurrent severe without psychotic features (principal); Z91.5 Personal history of self-harm

== ENCOUNTER 2022-10-16 22:17 | Emergency (ER) | payer OTHER ==
[~2022-10-16] VITALS: Ht 170.2 cm; Wt 95.8 kg
[~2022-10-16 22:17] MED LIST changes: -DOXY-350 PO; +DOXY-444 PO; +FLUO10CA18 PO
[2022-10-16] MEDS ORDERED: VENL75TA2 PO (22:34)
[2022-10-17 05:05] LABS: BASO # 0.1 10^3/uL (0.0-0.2); BASO % 0.5 % (0.0-1.0); EOS # 0.2 10^3/uL (0.0-0.5); EOS % 2.3 % (0.0-3.0); HEMATOCRIT 45.8 % (42.0-52.0); HEMOGLOBIN 15.6 g/dl (13.5-17.5); LYMPH # 2.4 10^3/uL (1.5-5.0); LYMPH % 24.8 % (24.0-44.0); MEAN CORPUSCULAR HEMOGLOBIN 30.4 pg (27.0-33.0); MEAN CORPUSCULAR HGB CONC 34.1 g/dl (32.0-36.5); MEAN CORPUSCULAR VOLUME 89.1 fl (80.0-96.0); MONO # 0.6 10^3/uL (0.0-0.8); MONO % 5.9 % (2.0-8.0); NEUTROPHILS # 6.4 10^3/uL (1.5-8.5); NEUTROPHILS % 65.8 % (36.0-66.0); PLATELET COUNT, AUTOMATED 200 10^3/uL (150-450); RED BLOOD COUNT 5.14 10^6/uL (4.30-6.10); WHITE BLOOD COUNT 9.8 10^3/uL (4.0-10.0)
[2022-10-17 05:25] LABS: BLOOD UREA NITROGEN 14 MG/DL (9-23); CARBON DIOXIDE LEVEL 26 MMOL/L (20-31); CHLORIDE LEVEL 107 MMOL/L (98-107); CREATININE FOR GFR 0.98 MG/DL (0.70-1.30); GLOMERULAR FILTRATION RATE > 60.0 (>60); GLUCOSE, FASTING 98 MG/DL (60-100); POTASSIUM SERUM 4.6 MMOL/L (3.5-5.1); SODIUM LEVEL 139 MMOL/L (136-145)
[2022-10-17 05:27] LABS: FREE T4 1.07 NG/DL (0.89-1.76); THYROID STIMULATING HORMONE 2.502 uIU/ML (0.55-4.78)
[2022-10-17] MEDS ORDERED: NS 1,000 ML IV ONE (06:35)
[2022-10-17] MEDS ORDERED: ONDANSETRON 4MG 2ML VIAL IV ONE (06:35)
[2022-10-17] MEDS ORDERED: ONDA4TAB6 PO (08:05)
[2022-10-17 08:15] VITALS: BP 143/87
== END 2022-10-17 08:24 | disposition home or self-care (01) ==
LOC: M ED 22:17
DX: R42 Dizziness and giddiness (principal); R00.2 Palpitations; T88.7XXA Unspecified adverse effect of drug or medicament, initial encounter
CPT/HCPCS: 71046; 80048; 84439; 84443; 85025; 93005; 93041; 94760; 96374; 99285; J2405

== ENCOUNTER → 2022-12-11 | Outpatient (CLI) | payer OTHER ==
[~2022-12-11] MED LIST changes: +ONDA4TAB6 PO; +VENL75TA2 PO
== END ==
LOC: M PLAIMG 14:24
DX: M41.9 Scoliosis, unspecified (principal); Z77.090 Contact with and (suspected) exposure to asbestos; J34.2 Deviated nasal septum; M25.552 Pain in left hip